=== PATIENT | male | born 2000 | race Caucasian/White ===

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

== ENCOUNTER 2019-01-05 23:20 | Emergency (ER) | payer OTHER ==
--- NOTE | 2019-01-05 23:47 | EDPHY ---
H & P Stated Complaint: Left Shoulder Dislocation Time Seen by Provider: 01/05/19 23:44 HPI/ROS: HPI CHIEF COMPLAINT: Left shoulder dislocation HISTORY OF PRESENT ILLNESS: 18-year-old male, otherwise healthy no significant medical history, presents to the emergency room left shoulder dislocation. Patient states he was play fighting with his friends, and went to throw punching a popped out. Anteriorly. He is unable to move now has pain. He arrives to the emergency room by private vehicle. Denies any other areas of injury. Denies focal weakness or numbness or tingling. Patient reports this is his 2nd shoulder dislocation. Past Medical History: No significant medical history Past Surgical History: No significant surgical history Social History: Denies tobacco or drugs. Alcohol this evening. Family History: Noncontributory ROS REVIEW OF SYSTEMS: 10 Systems were reviewed and negative with the exception of the elements mentioned in the history of present illness. Exam Constitutional triage nursing summary reviewed, vital signs reviewed, awake/ alert. Eyes normal conjunctivae and sclera, EOMI, PERRLA. HENT normal inspection, atraumatic, moist mucus membranes, no epistaxis, neck supple/ no meningismus, no raccoon eyes. Respiratory clear to auscultation bilaterally, normal breath sounds, no respiratory distress, no wheezing. Cardiovascular rate normal, regular rhythm, no murmur, no edema, distal pulses normal. Gastrointestinal soft, non-tender, no rebound, no guarding, normal bowel sounds, no distension, no pulsatile mass. Genitourinary no CVA tenderness. Musculoskeletal left upper extremity: Appears to be anteriorly dislocated on exam, axillary nerve intact. Good distal pulse, good cap refill, sensation intact. no midline vertebral tenderness, full range of motion, no calf swelling, no tenderness of extremities, no meningismus, good pulses, neurovascularly intact. Skin pink, warm, & dry, no rash, skin atraumatic. Neurologic awake, alert and oriented x 3, AAOx3, moves all 4 extremities equally, motor intact, sensory intact, CN II-XII intact, normal cerebellar, normal vision, normal speech. Psychiatric normal mood/affect. Heme/Lymph/Immune no lymphadenopathy. Differential Diagnosis: Includes but is not limited to in a particular order left shoulder dislocation, left shoulder fracture, shoulder contusion, shoulder strain Medical Decision Making: Plan for this patient x-ray left shoulder. Re-evaluation: 2345: He was admitted to gently manipulate the patient's left shoulder back into location. Gentle downward traction was applied and it popped back in. Post reduction without any medications he was neurovascular intact with good cap refill, good distal pulse, good axillary nerve intact. X-ray of the left shoulder reviewed. Appropriate alignment. No fracture. Patient has been placed in a sling. He is neurovascularly intact with good distal pulse, good cap refill, x-ray nerve intact. Normal sensation. No deficit. Recommend he follows up closely with Orthopedics. Return emergency room if worsening symptoms. Sling for comfort. Source: Patient - Personal History Current Tetanus/Diphtheria Vaccine: Yes Current Tetanus Diphtheria and Acellular Pertussis (TDAP): Yes - Medical/Surgical History Hx Asthma: No Hx Chronic Respiratory Disease: No Hx Diabetes: No Hx Cardiac Disease: No Hx Renal Disease: No Hx Cirrhosis: No Hx Alcoholism: No Hx HIV/AIDS: No Hx Splenectomy or Spleen Trauma: No Other PMH: tonsilectomy, testicular surgery, left shoulder dislocation - Social History Smoking Status: Never smoked Constitutional: Initial Vital Signs Heart Rate 115 H 01/05/19 23:27 Respiratory Rate 20 01/05/19 23:27 Blood Pressure 154/78 H 01/05/19 23:27 O2 Sat (%) 100 01/05/19 23:27 O2 Delivery Mode Room Air Allergies/Adverse Reactions: No Known Allergies Allergy (Verified 01/05/19 23:25) Home Medications: Medication Instructions Recorded Melatonin 09/14/17 traZODone 01/05/19 Departure - Departure Disposition: Home, Routine, Self-Care Clinical Impression: Shoulder dislocation Condition: Good Instructions: Shoulder Dislocation (ED) Additional Instructions: 1. Please follow up with Orthopedics 2. Return emergency room if you have worsening symptoms. 3. Sling for comfort. Recommend staying in your sling to your cleared by Orthopedics Referrals: NONE *PRIMARY CARE P,. [Primary Care Provider] - As per Instructions Shayne Luna MD [Medical Doctor] - As per Instructions
[2019-01-06 00:14] VITALS: BP 132/79
== END 2019-01-06 00:12 | disposition home or self-care (01) ==
PROC: 0RSKXZZ Reposition Left Shoulder Joint, External Approach (ICD-10-PCS; principal; 2019-01-05)
DX: S43.005A Unspecified dislocation of left shoulder joint, initial encounter (principal); X50.9XXA Other and unspecified overexertion or strenuous movements or postures, initial encounter; Y93.83 Activity, rough housing and horseplay

== ENCOUNTER 2019-02-07 16:49 | Emergency (ER) | payer OTHER ==
[2019-02-07] MEDS ORDERED: NS 1,000 ML IV ONE (17:24)
[2019-02-07] MEDS ORDERED: ACETAMINOPHEN 325 MG TAB PO ONE (17:25)
[2019-02-07 17:46] LABS: PLATELET COUNT 230 10^3/uL (150-400)
[2019-02-07] MEDS ORDERED: DEXAMETHASONE 10 MG/ML VIAL IVP ONE (18:32)
--- NOTE | 2019-02-07 18:36 | EDPHY ---
H & P Stated Complaint: Fevers, cough, body aches, "passed out". Sent by [facility]. Time Seen by Provider: 02/07/19 17:24 HPI/ROS: CHIEF COMPLAINT: Fever, sore throat HISTORY OF PRESENT ILLNESS: 18-year-old male presents with fever and sore throat. Onset of fever 2 days ago, associated with a moderate sore throat, myalgias and a frequent cough. Decreased oral intake. Today he started coughing, felt short of breath and became anxious and then had a syncopal episode. He was seen at [facility] and sent here for further evaluation. Strep screen and flu swab negative. REVIEW OF SYSTEMS: complete 10 point ROS reviewed and is negative except for the noted elements in the HPI - Personal History Current Tetanus Diphtheria and Acellular Pertussis (TDAP): Yes - Medical/Surgical History Hx Asthma: No Hx Chronic Respiratory Disease: No Hx Diabetes: No Hx Cardiac Disease: No Hx Renal Disease: No Hx Cirrhosis: No Hx Alcoholism: No Hx HIV/AIDS: No Hx Splenectomy or Spleen Trauma: No Other PMH: tonsilectomy, testicular surgery, left shoulder dislocation - Social History Smoking Status: Never smoked Alcohol Use: Sober Drug Use: None - Physical Exam Exam: General Appearance: Alert, pleasant, nontoxic-appearing Eyes: Pupils equal and round, no conjunctival pallor or injection ENT, Mouth: Mucous membranes moist, pharyngeal erythema Neck: Normal inspection Respiratory: Lungs are clear to auscultation, no wheezing Cardiovascular: Regular rate and rhythm Gastrointestinal: Abdomen is soft and nontender Neurological: A&O, nonfocal, normal gait Skin: Warm and dry, no rash on exposed skin Extremities: Normal inspection Psychiatric: Mood and affect normal Constitutional: Initial Vital Signs Temperature (C) 37.7 C 02/07/19 16:57 Heart Rate 134 H 02/07/19 16:57 Respiratory Rate 18 02/07/19 16:57 Blood Pressure 145/85 H 02/07/19 16:57 O2 Sat (%) 95 02/07/19 16:57 O2 Delivery Mode Room Air Allergies/Adverse Reactions: No Known Allergies Allergy (Verified 01/05/19 23:25) Home Medications: Medication Instructions Recorded Melatonin 09/14/17 traZODone 01/05/19 Medical Decision Making - Diagnostics Imaging Results: Chest X-Ray 02/07/19 17:25 Impression: Normal. Imaging: I viewed and interpreted images myself ED Course/Re-evaluation: This pt presents with URI sx and syncope, likely secondary to dehydration. VSS and pt non-toxic appearing. IV NS 1 liter given. Labs WNL. CXR: no infiltrate. Feels better on d/c, able to ambulate with a steady gait and without dizziness. Symptomatic rx and warning signs discussed. Differential Diagnosis: includes though not limited to pneumonia, hypoxia, dehydration, hypoglycemia - Data Points Laboratory Results: Laboratory Results 02/07/19 17:35 02/07/19 17:35 Medications Given: Discontinued Medications Acetaminophen (Tylenol) 650 mg PO EDNOW ONE Stop: 02/07/19 17:26 Last Admin: 02/07/19 17:35 Dose: Not Given Acetaminophen (Tylenol) 1,000 mg PO EDNOW ONE Stop: 02/07/19 19:50 Last Admin: 02/07/19 19:50 Dose: 1,000 mg Dexamethasone (Decadron Injection) 10 mg IVP EDNOW ONE Stop: 02/07/19 18:33 Last Admin: 02/07/19 18:41 Dose: 10 mg Sodium Chloride (Ns) 1,000 mls @ 0 mls/hr IV ONCE ONE; Wide Open PRN Reason: Protocol Stop: 02/07/19 17:25 Last Admin: 02/07/19 17:34 Dose: 1,000 mls Departure - Departure Disposition: Home, Routine, Self-Care Clinical Impression: Viral syndrome Condition: Good Instructions: Viral Syndrome (ED) Additional Instructions: Tylenol 650 mg every 4 hr as needed for fever. Drink plenty of fluids. Return for worsening symptoms or any concerns. Referrals: [facility] [Clinic] - As per Instructions Stand Alone Forms: School Excuse
[2019-02-07] MEDS ORDERED: DEXAMETHASONE 4 MG/ML VIAL ONE (18:40)
[2019-02-07] MEDS ORDERED: ACETAMINOPHEN 500 MG TAB ONE (19:46)
[2019-02-07] MEDS ORDERED: ACETAMINOPHEN 500 MG TAB PO ONE (19:49)
[2019-02-07 19:53] VITALS: BP 128/78
== END 2019-02-07 20:12 | disposition home or self-care (01) ==
DX: B34.9 Viral infection, unspecified (principal); E86.9 Volume depletion, unspecified
CPT/HCPCS: 96374; J1100

== ENCOUNTER 2019-03-18 10:40 | Emergency (ER) | payer OTHER ==
[2019-03-18] MEDS ORDERED: NS 1,000 ML IV ONE ×2 (10:52→11:09)
[2019-03-18] MEDS ORDERED: LORazepam 2 MG/ML INJ IVP ONE ×2 (10:52→11:09)
[2019-03-18] MEDS ORDERED: LORazepam 2 MG/ML INJ ONE (11:10)
--- NOTE | 2019-03-18 11:15 | EDPHY ---
H & P Stated Complaint: cocaine last night extreme anxiety tachy and hyperventilation carpal spasm Time Seen by Provider: 03/18/19 10:52 HPI/ROS: CHIEF COMPLAINT: Agitated, restless, hyperventilating after using cocaine HISTORY OF PRESENT ILLNESS: The patient presents the ED with agitation, restlessness and hyperventilating after using cocaine. The patient also used alcohol and marijuana. He denies any additional drug use. The patient takes no prescription medications. The patient complains of restlessness, hyperventilation and carpal pedal spasms. The patient denies any headache, significant chest pain, localizing numbness/weakness or additional complaints. The patient denies any history of fall or trauma. The patient states that he feels quite poor currently. REVIEW OF SYSTEMS: A comprehensive 10 point review of systems is otherwise negative aside from elements mentioned in the history of present illness. Source: Patient Exam Limitations: No limitations - Personal History Current Tetanus Diphtheria and Acellular Pertussis (TDAP): Yes - Medical/Surgical History Hx Asthma: No Hx Chronic Respiratory Disease: No Hx Diabetes: No Hx Cardiac Disease: No Hx Renal Disease: No Hx Cirrhosis: No Hx Alcoholism: No Hx HIV/AIDS: No Hx Splenectomy or Spleen Trauma: No Other PMH: tonsilectomy, testicular surgery, left shoulder dislocation - Social History Smoking Status: Never smoked Alcohol Use: Occasionally Drug Use: Cocaine, Marijuana - Physical Exam Exam: General Appearance: Alert, anxious, restless Eyes: Pupils equal and round no pallor or injection ENT, Mouth: Mucous membranes moist Respiratory: There are no retractions, lungs are clear to auscultation Cardiovascular: Tachycardic Gastrointestinal: Abdomen is soft and nontender, no masses, bowel sounds normal Neurological: A&O, normal motor function, normal sensory exam, normal cranial nerves Skin: Warm and dry, no rashes Musculoskeletal: Neck is supple nontender Extremities: symmetrical, full range of motion Psychiatric: Patient is oriented X 3, there is no agitation Constitutional: Initial Vital Signs Temperature (C) 36.7 C 03/18/19 10:43 Heart Rate 130 H 03/18/19 10:43 Respiratory Rate 19 03/18/19 10:43 Blood Pressure 130/92 H 03/18/19 10:43 O2 Sat (%) 93 03/18/19 10:43 O2 Delivery Mode Room Air Allergies/Adverse Reactions: No Known Allergies Allergy (Verified 03/18/19 10:42) Home Medications: Medication Instructions Recorded NK [No Known Home Meds] 03/18/19 traZODone 03/18/19 Medical Decision Making - Diagnostics EKG Interpretation: EKG: Complete interpretation has been separately recorded in the [facility] archive. Summary impression: Sinus tachycardia, rate 125, nonspecific ST T wave changes noted ED Course/Re-evaluation: The patient presents to the ED with agitation, restlessness and hyperventilation after using cocaine yesterday. The patient has no evidence of ST segment elevation myocardial infarction. The patient had an IV established. He received a L of normal saline and 1 mg of Ativan. The patient was placed on a cardiac nurse. I re-evaluated the patient at 1:00 p.m.. He has been observed in the department for 2 hr with complete resolution of his symptoms. He has complete normal intact mentation. He has no evidence of sedation. He has been advised of the risks of continued use of cocaine including stroke, heart attack and . The patient is comfortable with discharge at this point time. He is given customary aftercare instructions and return precautions. Differential Diagnosis: Differential diagnosis considered includes hyperventilation syndrome, acute coronary syndrome, sympathomimetic toxicity - Data Points Laboratory Results: 03/18/19 11:15 Troponin I < 0.012 ng/mL ng/mL (0.000-0.034) Medications Given: Discontinued Medications Sodium Chloride (Ns) 1,000 mls @ 0 mls/hr IV EDNOW ONE; Wide Open PRN Reason: Protocol Stop: 03/18/19 10:53 Last Admin: 03/18/19 10:59 Dose: Not Given Sodium Chloride (Ns) 1,000 mls @ 0 mls/hr IV ONCE ONE PRN Reason: Wide Open Stop: 03/18/19 11:10 Last Admin: 03/18/19 11:14 Dose: 1,000 mls Lorazepam (Ativan Injection) 1 mg IVP EDNOW ONE Stop: 03/18/19 10:53 Last Admin: 03/18/19 10:59 Dose: Not Given Lorazepam (Ativan Injection) 1 mg IVP EDNOW ONE Stop: 03/18/19 11:10 Last Admin: 03/18/19 11:15 Dose: 1 mg Departure - Departure Disposition: Home, Routine, Self-Care Clinical Impression: Cocaine abuse, Hyperventilation Condition: Good Instructions: Hyperventilation (ED) Additional Instructions: 1. Return to the ED for any worsening symptoms or other concerns. 2. I recommend complete abstinence from recreational drugs including cocaine. Continued use of cocaine put you at risk for heart attack, stroke and . 3. Please try and increase your fluids today as you likely have mild dehydration. Referrals: [facility],. [Clinic] - As per Instructions
--- NOTE | 2019-03-18 11:44 | CPEKG ---
Test Reason : OPEN Blood Pressure : / mmHG Vent. Rate : 125 BPM Atrial Rate : 126 BPM P-R Int : 071 ms QRS Dur : 107 ms QT Int : 335 ms P-R-T Axes : 000 110 032 degrees QTc Int : 484 ms Sinus tachycardia Borderline right axis deviation Borderline ST depression, inferior leads Borderline prolonged QT interval Confirmed by Red Murillo ([id number]) on 03/18/2019 11:43:38 AM Referred By: Red Murillo Confirmed By:Red Murillo
[2019-03-18 12:58] VITALS: BP 107/78
== END 2019-03-18 12:57 | disposition home or self-care (01) ==
DX: F14.10 Cocaine abuse, uncomplicated (principal); R06.4 Hyperventilation; R45.1 Restlessness and agitation; E86.9 Volume depletion, unspecified
CPT/HCPCS: 96374; J2060